=== PATIENT | male | born 1955 | race Caucasian/White ===

== ENCOUNTER 2016-10-02 07:35 | Inpatient (IN) ==
[2016-09-27 15:52] LABS: Basophils % 0.8 % (0.0-0.8); Eosinophils # 0.1 10*3/uL (0.0-0.87); Eosinophils % 1.9 % (0.00-10.9); Hematocrit 45.6 VOL% (42.0-52.0); Hemoglobin 16.4 GM/DL (14.0-18.0); Immature Granulocytes % 0.2 %; Immature Granulocytes Absolute 0.01 #; Mean Corpuscular Hemoglobin 32 PG (27-34); Mean Corpuscular Volume 88.7 FL (87-102); Mean Platelet Volume 10.4 FL (9.6-12.0); Monocytes # 0.5 10*3/uL (0.11-0.8); Neutrophils # 1.7 10*3/uL (1.4-7.4); Neutrophils % 31.1 % (38.7-73.9); Platelet Count 117 T/CUMM (130-400); Red Blood Count 5.14 MC/CUMM (3.8-5.5); White Blood Count 5.3 T/CUMM (4-12)
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
[2016-09-27 16:04] LABS: PT Patient Result 11.1 SECS
[2016-09-27 16:05] LABS: Partial Thromboplastin Time 61.4 SECS (0-40)
[2016-09-27 16:06] LABS: Apearance,Urine CLEAR (Clear); Bilirubin,Urine Negative (Negative); Blood, Urine Negative (Negative); Glucose,Urine (UA) Negative (Negative); Hyaline Casts,Urine 3 /LPF (0-3); Ketones,Urine Negative (Negative); Mucus,Urine Many /LPF (Occasional); Nitrite,Urine Negative (Negative); Protein,Urine Negative; RBC,Urine 1 /HPF (0-4); Urine Color Yellow (Yellow); Urine Specific Gravity 1.017 (1.001-1.035); WBC,Urine 4 /HPF (0-6)
[2016-09-27 16:09] LABS: Albumin 3.3 G/DL (3.4-5.0); Bilirubin,Total 0.4 MG/DL (0.2-1.0); Osmolality,Calculated 276.4 MOS/KG (273-304); Potassium 4.1 MMOL/L (3.5-5.1); Total Protein 6.8 G/DL (6.4-8.3)
[2016-09-27 16:36] LABS: Eosinophils 1 % (0-10); Lymphocytes 57 % (20-55); Metamyelocytes 1 %; Segmented Neutrophils 35 % (50-85); Total Cells Counted 100
[2016-09-27 16:37] LABS: Platelet Estimate Adequate
--- NOTE | 2016-09-28 08:34 | EKG Report ---
Stationary ECG Study [facility] Test Date: 09/27/2016 3:09:24 PM Pat Name: NICOLE CASEY Department: Room: Gender: M Destination Imagination Coordinator: LAURA RIVERA : 1955 Requested by: Westley Mercado Order Number: [id number] Reading MD: TABITHA HOFFMAN Intervals [place] Rate: 70 P: 70 GA: 208 QRS: 69 QRSD: 93 T: 79 QT: 366 QTc: 387 Interpretive Statements SINUS RHYTHM Electronically Signed On 09-28-16 12:53:35 CDT by TABITHA HOFFMAN [email or web address]
[~2016-10-02 07:35] MED LIST: VANCOMYCIN INJ 1,000 MG in SODIUM CHLORIDE 0.9% 250 ML IV ONE
[2016-10-02] MEDS ORDERED: FAMOTIDINE 20 MG TABLET PO ONE (08:16)
[2016-10-02] MEDS ORDERED: DIAZEPAM 5 MG TABLET PO ONE (08:16)
--- NOTE | 2016-10-02 08:41 | History and Physical Update ---
History and Physical Update - History and Physical H&P was reviewed, the patient examined and there: are no changes in the patients condition since last H&P was completed. - Physical Exam Mental Status: alert and oriented Heart: regular rate and rhythm Lung: clear to auscultation
[2016-10-02] MEDS ORDERED: VANCOMYCIN 1,000 MG VIAL ONE (08:59)
[2016-10-02] MEDS ORDERED: DIAZEPAM 5 MG TABLET ONE (08:59)
[2016-10-02] MEDS ORDERED: ceFAZolin 1,000 MG VIAL ONE (08:59)
[2016-10-02] MEDS ORDERED: FAMOTIDINE 20 MG TABLET ONE (08:59)
[2016-10-02] MEDS ORDERED: SODIUM CHLORIDE 0.9% 100 ML IV ONE (09:00)
[2016-10-02] MEDS ORDERED: LACTATED RINGERS 1,000 ML IV SCH ×2 (09:30→14:30)
[2016-10-02] MEDS ORDERED: ROPIVACAINE 0.5% 30 ML VIAL ONE (12:11)
[2016-10-02] MEDS ORDERED: BACITRACIN OINT 0.9 GM PACK TOP ONE (13:37)
[2016-10-02] MEDS ORDERED: TRANEXAMIC ACID 1,000 MG/10 ML VIAL IV ONE (13:41)
[2016-10-02] MEDS ORDERED: PROPOFOL 200 MG/20 ML VIAL IV ONE (14:00)
[2016-10-02] MEDS ORDERED: HYDROmorphone 2 MG/1 ML VIAL ONE ×2 (14:00→16:14)
[2016-10-02] MEDS ORDERED: ACETAMINOPHEN 1,000 MG/100 ML VIAL IV ONE ×2 (14:01→16:09)
[2016-10-02] MEDS ORDERED: fentaNYL 100 MCG/2 ML VIAL ONE (14:01)
[2016-10-02] MEDS ORDERED: MIDAZOLAM 2 MG/2 ML VIAL ONE (14:01)
[2016-10-02] MEDS ORDERED: ONDANSETRON 4 MG/2 ML VIAL ONE ×2 (14:01→16:14)
[2016-10-02] MEDS ORDERED: guaiFENesin/DM ER 600-30 MG TABLET PO PRN (14:05)
[2016-10-02] MEDS ORDERED: ZALEPLON 5 MG CAPSULE PO PRN (14:06)
[2016-10-02] MEDS ORDERED: oxyCODONE/ACETAMINOPHEN 5-325 MG TABLET PO PRN ×2 (14:06)
[2016-10-02] MEDS ORDERED: diphenhydrAMINE CAP 25 MG CAPSULE PO PRN (14:06)
[2016-10-02] MEDS ORDERED: MORPHINE 2 MG/1 ML SYRINGE IV PRN ×2 (14:06)
[2016-10-02] MEDS ORDERED: MAGNESIUM HYDROXIDE SUSP 30 ML UDCUP PO PRN (14:06)
[2016-10-02] MEDS ORDERED: oxyCODONE IR 5 MG TABLET PO PRN (14:06)
[2016-10-02] MEDS ORDERED: ONDANSETRON 4 MG/2 ML VIAL IV PRN ×2 (14:06→16:13)
--- NOTE | 2016-10-02 15:28 | Operative Note ---
Date of procedure: 10/02/16 Procedure: DIAGNOSIS: Left knee primary osteoarthrosis PROCEDURE: Left total knee arthroplasty (cpt #96948) SURGEON: Mateus ANESTHESIA: General with a postoperative adductor canal block PROCEDURE and FINDINGS: After adequate was induced, the patient's knee was prepped and draped in the usual sterile fashion. The limb was exsanguinated with Esmarch. Tourniquet was inflated to 300 mmHg. A median parapatellar approach was made. Femur was cut using an intramedullary guide and a 4 in 1 cutting jig in 5 degrees of valgus. ACL and menisci were excised. Tibia was cut using intramedullary guide. Patella was cut using freehand technique. Components were trialed. Tibial fin was prepared. Components are cemented in place using Palacos cement and modern cementing techniques. Cement was removed. A 1/8 inch Hemovac drain was placed. The knee was well-balanced and full range of motion with central tracking patella. Deep layers closed with 0-0 Vicryl. Superficial layers were closed with 2-0 and 3-0 Vicryl. Skin was approximated with william. Bacitracin and a sterile dressing was applied. Patient was transferred to recovery. A postoperative adductor canal block is anticipated. COMPONENTS: The Ester Persona system was used. 11 CR femur, G natural tibia, 10 mm liner, 35 mm patella TOURNIQUET TIME: 51 minutes Surgeon / Physician: Westley Ignacio Jr. Results - Labs CBC & BMP: 09/27/16 15:41 09/27/16 15:41 Discharge Plan - Discharge Medications No Action guaiFENesin/DM ER 600-30 [Mucinex Dm 600-30 MG] 1 tablet PO DAILY PRN PRN Reason: Cough Doxycycline Hyclate Cap [Vibramycin Cap] 100 mg PO DAILY raNITIdine HCl [Zantac] 300 mg PO DAILY Azithromycin [Zithromax] 500 mg PO DAILY - Follow Up or Referral - Forms/Instructions
--- NOTE | 2016-10-02 16:04 | Anesthesia Post-Op ---
Anesthesia Post OP - Post Ansesthetic Evaluation Patient seen in post op: Yes Resp: within normal limits CV: within normal limits Mental: within normal limits Temp: within normal limits [id number]: within normal limits Nausea and Vomiting: within normal limits Pain: within normal limits
[2016-10-02] MEDS: HYDROmorphone 2 MG/1 ML VIAL IV PRN ×2 (16:16→16:24)
--- NOTE | 2016-10-02 16:35 | XRay Report ---
XR knee 2V LT Indication: Joint replacement (left knee) Comparison: None Technique: Frontal and lateral views of the left knee Findings: Status post total left knee arthroplasty. No evidence of immediate hardware failure. Superficial skin william and surgical drain/s overlie the knee. Subcutaneous and joint space air noted which is likely postoperative. IMPRESSION: Status post total left knee arthroplasty. PROCEDURE INTERPRETED AT [facility] DEPARTMENT OF RADIOLOGY Final Report Signed by: Dr Del Estrada
[2016-10-02] MEDS: ceFAZolin 2,000 MG in PREMIX 1 EACH IV SCH (18:14)
[2016-10-02] MEDS: ACETAMINOPHEN 500 MG TABLET PO SCH (20:52)
[2016-10-02] MEDS: KETOROLAC 30 MG/1 ML VIAL IV SCH (20:53)
[2016-10-02] MEDS: DOCUSATE SODIUM 100 MG CAPSULE PO SCH (20:53)
[2016-10-03] MEDS: ACETAMINOPHEN 500 MG TABLET PO SCH ×3 (02:41→15:37)
[2016-10-03] MEDS: KETOROLAC 30 MG/1 ML VIAL IV SCH ×3 (02:43→15:37)
[2016-10-03] MEDS: ceFAZolin 2,000 MG in PREMIX 1 EACH IV SCH (02:45)
[2016-10-03 05:24] LABS: Basophils % 0.2 % (0.0-0.8); Hematocrit 41.4 VOL% (42.0-52.0); Hemoglobin 14.6 GM/DL (14.0-18.0); Immature Granulocytes % 0.5 %; Immature Granulocytes Absolute 0.08 #; Lymphocytes # 3.2 10*3/uL (1.4-4.0); Lymphocytes % 18.5 % (21.2-54.2); Mean Corpuscular HGB Conc 35.3 GM/DL (32-36); Mean Corpuscular Hemoglobin 32 PG (27-34); Mean Corpuscular Volume 90.2 FL (87-102); Monocytes # 1.5 10*3/uL (0.11-0.8); Monocytes % 8.8 % (1.7-12.7); Neutrophils # 12.5 10*3/uL (1.4-7.4); Platelet Count 227 T/CUMM (130-400); Red Blood Count 4.59 MC/CUMM (3.8-5.5); Red Cell Distribution Width 11.9 % (9.3-17.3); White Blood Count 17.4 T/CUMM (4-12)
[2016-10-03 05:51] LABS: Calcium 8.4 MG/DL (8.5-10.1); Osmolality,Calculated 280.4 MOS/KG (273-304); Potassium 4.4 MMOL/L (3.5-5.1)
[2016-10-03] MEDS: FONDAPARINUX 2.5 MG/0.5 ML SYRINGE SUBCUT SCH (08:55)
[2016-10-03] MEDS: FAMOTIDINE 20 MG TABLET PO SCH (08:55)
[2016-10-03] MEDS: AZITHROMYCIN 250 MG TABLET PO SCH (08:55)
[2016-10-03] MEDS: DOCUSATE SODIUM 100 MG CAPSULE PO SCH ×2 (08:55→21:01)
[2016-10-03] MEDS: DOXYCYCLINE HYCLATE 100 MG CAPSULE PO SCH (08:56)
[2016-10-03] MEDS ORDERED: ACETAMINOPHEN 500 MG TABLET ONE (15:30)
--- NOTE | 2016-10-03 16:23 | Orthopedic Progress Note ---
Orthopedics - Subjective Interval history: comfortable. nv ok. dressing dry. mobilize with therapy. IS encouraged. Exam - Constitutional Vitals: Period Temp Pulse Resp BP Sys/Kim Pulse Ox Last 24 Hr 97.0 F-98.2 F 64-92 16-19 108-168/58-80 92-99 Results - Labs CBC & BMP: 10/03/16 05:07 10/03/16 05:07
[2016-10-03] MEDS ORDERED: CELECOXIB 200 MG CAPSULE PO SCH (21:00)
[2016-10-04] MEDS: oxyCODONE IR 5 MG TABLET PO PRN ×2 (02:14→09:41)
[2016-10-04 03:18] LABS: Basophils # 0.1 10*3/uL (0.0-0.2); Basophils % 0.5 % (0.0-0.8); Eosinophils # 0.1 10*3/uL (0.0-0.87); Eosinophils % 1.3 % (0.00-10.9); Hematocrit 37.7 VOL% (42.0-52.0); Hemoglobin 12.9 GM/DL (14.0-18.0); Immature Granulocytes % 0.3 %; Immature Granulocytes Absolute 0.03 #; Lymphocytes # 4.3 10*3/uL (1.4-4.0); Lymphocytes % 43.2 % (21.2-54.2); Mean Corpuscular HGB Conc 34.2 GM/DL (32-36); Mean Corpuscular Hemoglobin 31 PG (27-34); Mean Corpuscular Volume 91.3 FL (87-102); Mean Platelet Volume 10.1 FL (9.6-12.0); Monocytes # 0.9 10*3/uL (0.11-0.8); Monocytes % 9.1 % (1.7-12.7); Neutrophils # 4.6 10*3/uL (1.4-7.4); Neutrophils % 45.6 % (38.7-73.9); Platelet Count 186 T/CUMM (130-400); Red Blood Count 4.13 MC/CUMM (3.8-5.5); Red Cell Distribution Width 12.1 % (9.3-17.3)
--- NOTE | 2016-10-04 07:26 | Discharge Summary ---
Hospital Course - Hospital Course Hospital Course: Mr. Richey was admitted after undergoing an uncomplicated left total knee replacement. Received perioperative DVT and antimicrobial prophylaxis. He is discharged home postoperative day #2 doing outpatient physical therapy. His wound is clean, dry and intact. He can perform straight leg raise. Specialty Discharge - Follow Up or Referrals Follow up with: Westley Ignacio Jr., MD [Physician] - 10/15/16 1:25 pm (10 days ) Discharge Plan - Discharge Data Disposition: Disch To Home/Self Care Condition at Discharge: Stable Discharge Diet: advance to your usual diet Hygiene: may shower Weight Bearing at Discharge: weight bear as tolerated Driving: not until seen by doctor - Discharge Medications Continue raNITIdine HCl [Zantac Tab] 300 mg PO DAILY Etodolac 500 mg PO BID - Follow Up or Referral Follow Up: Westley Ignacio Jr., MD [Physician] - 10/15/16 1:25 pm (10 days ) - Forms/Instructions Instructions: Total Knee Replacement (DC) Additional Discharge Instructions: Daily dry dressing changes. Weightbearing as tolerated. Arrange crutches and bedside commode for home use. Wear ELIS hose for 1 month. Follow-up appointment in approximately 10 days. Prescription for Kipling 7.5 with 30 tablets was written. Take aspirin 325 mg by mouth daily for 21 days. Arrange for outpatient physical therapy at [facility] for 3 times a week for 4 weeks. Exam - Constitutional Vitals: Period Temp Pulse Resp BP Sys/Kim Pulse Ox Last 24 Hr 97.5 F-99.1 F 68-83 16-20 108-153/60-80 96-98 Discharge Results Procedures and tests throughout hospitalization: Pending Orders 10/05/16 04:00 Comp Blood Count Auto Diff IN AM Labs on day of discharge: Labs from last 24 hours 10/04/16 02:52 WBC 10.0 D RBC 4.13 Hgb 12.9 L Hct 37.7 L MCV 91.3 MCH 31 MCHC 34.2 RDW 12.1 Plt Count 186 MPV 10.1 Neut % (Auto) 45.6 Lymph % (Auto) 43.2 [place] % (Auto) 9.1 Eos % (Auto) 1.3 Baso % (Auto) 0.5 Neut # (Auto) 4.6 Lymph # (Auto) 4.3 H [place] # (Auto) 0.9 H Eos # (Auto) 0.1 Baso # (Auto) 0.1 Immature Gran % 0.3 Nucleated RBC % 0.0 Immature Gran # 0.03 Nucleated RBCs # 0.00 DS: Provider Date of admission: 10/02/16 07:35 Primary care physician: Raz Eagle Jr., MD Attending physician on admission: Westley Ignacio Jr., Consults: 10/02/16 14:06 Consult to Case Mgmt/Social Srvs [CONS] Routine Reason for Case Mgmt/Social Srvs: Rehab Home Health Equipment Consult Comment: Deliver CPM & Bedside Commode to 318 before D/C; Pt 6ft 193 lbs Consult to Occupational Therapy [CONS] Routine Reason for Occupational Therapy: Evaluate and Treat Consult Comment: ADL's Consult to Physical Therapy [CONS] Routine Reason for Physical Therapy: Evaluate and Treat Gait Training 10/03/16 17:45 Consult to Physical Therapy [CONS] Routine Reason for Physical Therapy: Other Consult Comment: Give the patient a Standard Walker or a pair of Crutches before D/C home. Discharging clinician: Westley Ignacio Jr., Expected date of discharge: 10/04/16
[2016-10-04 07:44] VITALS: BP 144/49
[2016-10-04] MEDS: DOCUSATE SODIUM 100 MG CAPSULE PO SCH (08:44)
[2016-10-04] MEDS: DOXYCYCLINE HYCLATE 100 MG CAPSULE PO SCH (08:45)
[2016-10-04] MEDS: AZITHROMYCIN 250 MG TABLET PO SCH (08:45)
[2016-10-04] MEDS: FAMOTIDINE 20 MG TABLET PO SCH (08:45)
[2016-10-04] MEDS: FONDAPARINUX 2.5 MG/0.5 ML SYRINGE SUBCUT SCH (09:40)
--- NOTE | 2016-10-04 13:18 | Pathology Report from [facility] ---
[facility] [place] # : [id number] PATIENT NAME : Nicole Richey ORDERING DR : SANTANA RIVERA MD CLINICAL HX: LT knee osteoarthritis POST-OP DX: Same SPECIMEN INFO: LT knee bone & tissue GROSS DESCRIPTION: Received in formalin labeled NICOLE RICHEY consists of multiple fragments of bone, soft tissue and cartilage measuring 14.0 x 6.0 cm in aggregate. The articular surfaces are focally degenerative with no subchondral eburnation seen. Drilling Plant Operator tissue is submitted in one cassette. DIAGNOSIS FOR NICOLE RICHEY: LEFT KNEE BONE & TISSUE, TOTAL REPLACEMENT: Osteoarthritis. COLLECTED DATE: 10/03/2016 [facility] REPORT DATE: 10/04/2016 ELECTRONICALLY SIGNED BY: Jaja Hilton M.D. 10/04/2016 - 10:23:34 [facility]
== END 2016-10-04 11:20 | disposition home or self-care (01) | DRG 470 ==
LOC: N.SDSINP 07:35 → N.3E 16:49
PROVIDERS: ADMIT Orthopaedic Surgery; ATTEND Orthopaedic Surgery